=== PATIENT | female | born 1940 | race Caucasian/White ===

== ENCOUNTER 2017-10-30 21:45 | Emergency (ER) | payer OTHER ==
[~2017-10-30] VITALS: Ht 162.6 cm; Wt 91.9 kg
[~2017-10-30 21:45] MED LIST: CALTRATE 600600 MG PO; CIPRO XR 500 M500 M1 PO; COUMADIN2.5 MG PO; CRESTOR10 MG PO; DEXILANT60 MG PO; FERROUS SULFAT325 MG PO; LEXAPRO10 MG PO; LOSARTAN-HCTZ1 EAC1 PO; NEXIUM40 MG PO; PERCOCET 5/31 TABLET PO; PRESERVISION T1 EACH PO; SYNTHROID175 MCG PO; THERA-D2000 UNIT PO; TOPROL XL100 MG PO; TOPROL XL25 MG PO; TRICOR145 MG PO; TYLENOL WITH C1 EACH PO; VERAPAMIL ER300 MG PO; VISTARIL25 MG PO; ZANTAC300 MG PO
[2017-10-31 00:12] VITALS: BP 144/100
== END 2017-10-31 00:13 | disposition home or self-care (01) ==
LOC: EME 21:45
DX: S43.401A Unspecified sprain of right shoulder joint, initial encounter (principal); W01.0XXA Fall on same level from slipping, tripping and stumbling without subsequent striking against object, initial encounter
CPT/HCPCS: 73030; 99281; 99284